=== PATIENT | female | born 1950 | race Asian ===

== ENCOUNTER 2019-11-25 10:59 | Emergency (ER) | payer OTHER ==
--- NOTE | 2019-11-25 12:02 | Emergency Department Report ---
Blank Doc - Documentation Documentation: 68-year-old female that presents with syncopal episode.. This initial assessment/diagnostic orders/clinical plan/treatment(s) is/are subject to change based on patient's health status, clinical progression and re- assessment by fellow clinical providers in the ED. Further treatment and workup at subsequent clinical providers discretion. Patient/guardians urged not to elope from the ED as their condition may be serious if not clinically assessed and managed. Initial orders include: 1- Patient sent to [facility] for further evaluation and treatment 2- cardiac workup
--- NOTE | 2019-11-25 12:52 | Cat Scan Report ---
CT BRAIN: 11/25/2019 INDICATION / CLINICAL INFORMATION: MAIN: Syncope X 12 HR. COMPARISON: None available. FINDINGS: BRAIN/INTRACRANIAL STRUCTURES: Unenhanced CT images of the brain dated straight no evidence of acute intracranial abnormality. Ventricles and sulci are normal in size and shape. There is no evidence of acute ischemic injury, hemorrhage, or mass. Some patchy chronic white matter hypoattenuation is present in the cerebral hemispheric white matter. There are no abnormal extra-axial fluid collections. EXTRACRANIAL STRUCTURES: Unremarkable. IMPRESSION: No acute abnormality. All CT scans at this location are performed using dose reduction to ALARA by means of automated expos ure control. Signer Name: Zafar Frederick MD Signed: 11/25/2019 12:47 PM Workstation Name: [id number]
[2019-11-25 13:25] LABS: Bacteria,Urine 1+ /HPF (Negative); Bilirubin,Urine NEG (Negative); Blood,Urine NEG (Negative); Color,Urine Amber (Yellow); Hyaline Casts,Urine 4 /LPF; Mucus,Urine FEW /HPF; Protein,Urine <15 mg/dL mg/dL (Negative)
[2019-11-25 13:40] LABS: Basophils % (Auto) 0.4 % (0.0-1.8); Eosinophils % (Auto) 0.2 % (0.0-4.3); Hematocrit 41.1 % (30.3-42.9); Hemoglobin 13.5 gm/dl (10.1-14.3); Lymphocytes % (Auto) 18.3 % (13.4-35.0); Mean Corpuscular HGB Conc 33 % (30-34); Mean Corpuscular Volume 90 fl (79-97); Monocytes # (Auto) 0.5 K/mm3 (0.0-0.8); Monocytes % (Auto) 8.5 % (0.0-7.3); Platelet Count 292 K/mm3 (140-440); Red Blood Count 4.59 M/mm3 (3.65-5.03); Red Cell Distribution Width 13.9 % (13.2-15.2)
[2019-11-25 14:00] LABS: Alanine Aminotransferase 19 units/L (7-56); Albumin 4.1 g/dL (3.9-5); BUN/Creatinine Ratio 17; Blood Urea Nitrogen 17 mg/dL (7-17); Calcium 9.8 mg/dL (8.4-10.2); Hemolysis Index 8
[2019-11-25] MEDS ORDERED: ONDANSETRON 4 MG/2 ML INJ IV ONE (18:51)
[2019-11-25] MEDS ORDERED: SODIUM CHLORIDE 0.9% 1000 ML 1,000 ML IV ONE (18:51)
[2019-11-25] MEDS ORDERED: SODIUM CHLORIDE 0.9% 1000 ML 1,000 ML ONE (18:52)
[2019-11-25] MEDS ORDERED: ONDANSETRON 4 MG/2 ML INJ ONE (18:53)
--- NOTE | 2019-11-25 18:56 | Emergency Department Report ---
ED Syncope HPI - General Chief Complaint: Syncope Stated Complaint: PASSED OUT, DIZZY Time Seen by Provider: 11/25/19 11:59 - History of Present Illness Initial Comments: Patient is 68-year-old female with past medical history of cervical cancer 4 years ago in remission. Patient presented to the ER complaining of 1 episode of syncope happened this morning. Patient stated that she went to the bathroom and while she is standing to brush her teeth she felt lightheaded and fell and lost her consciousness for brief seconds and now she is back to normal. Patient found to be slightly hypoglycemic with a low blood pressure. Patient patient denied any headache, neck pain, chest pain, shortness of breath, abdominal pain. Patient stated that she was nauseated with decreased appetite for the last few days however she denied any fever or urinary symptoms. Timing/Prior Episodes: no prior history, single episode today Precipitating Factors: Positive: lightheadedness Context: standing Loss of Consciousness: brief (seconds) Current Symptoms: back to normal - Related Data Allergies/Adverse Reactions: Allergies No Known Allergies Allergy (Unverified 11/25/19 11:04) ED Review of Systems ROS: Stated complaint: PASSED OUT, DIZZY Other details as noted in HPI Comment: All other systems reviewed and negative Constitutional: denies: chills, fever Respiratory: denies: cough, orthopnea, shortness of breath, SOB with exertion, SOB at rest Cardiovascular: denies: chest pain, palpitations Gastrointestinal: denies: abdominal pain, nausea, vomiting, diarrhea, constipation, hematemesis, melena, hematochezia Genitourinary: denies: urgency, dysuria, frequency, hematuria, discharge, abnormal menses Musculoskeletal: denies: back pain Neurological: vertigo (Resolved.). denies: headache, weakness, numbness, paresthesias, confusion, abnormal gait ED Past Medical Hx - Past Medical History Previous Medical History?: Yes Hx Hypertension: Yes Additional medical history: Cervical CA - Surgical History Past Surgical History?: Yes Additional Surgical History: Surgery for cervical CA - Social History Smoking Status: Current Every Day Smoker Substance Use Type: None ED Physical Exam - General Limitations: No Limitations General appearance: alert, in no apparent distress - Head Head exam: Present: atraumatic, normocephalic, normal inspection - Eye Eye exam: Present: normal appearance, PERRL - ENT ENT exam: Present: mucous membranes dry - Neck Neck exam: Present: normal inspection, full ROM. Absent: tenderness, meningismus - Respiratory Respiratory exam: Present: normal lung sounds bilaterally - Cardiovascular Cardiovascular Exam: Present: normal rhythm, bradycardia, normal heart sounds - GI/Abdominal GI/Abdominal exam: Present: soft, normal bowel sounds. Absent: distended, tenderness, guarding, rebound, rigid, organomegaly, mass, bruit, pulsatile mass, hernia - Extremities Exam Extremities exam: Present: normal inspection, full ROM, normal capillary refill. Absent: tenderness, pedal edema, calf tenderness - Back Exam Back exam: Present: normal inspection, full ROM. Absent: CVA tenderness (R), CVA tenderness (L), muscle spasm, paraspinal tenderness, vertebral tenderness - Neurological Exam Neurological exam: Present: alert, oriented X3, CN II-XII intact, normal gait, reflexes normal. Absent: abnormal gait, motor sensory deficit - Psychiatric Psychiatric exam: Present: normal mood - Skin Skin exam: Present: warm, dry, intact ED Course Vital Signs 11/25/19 11/25/19 11/25/19 11:38 16:16 18:15 Temperature 98.2 F 97.9 F Pulse Rate 56 L 89 58 L Respiratory 18 20 18 Rate Blood Pressure 108/65 114/61 131/61 Blood Pressure 137/91 [Left] O2 Sat by Pulse 98 97 97 Oximetry 11/25/19 11/25/19 11/25/19 18:30 18:46 19:00 Temperature Pulse Rate 54 L 55 L 53 L Respiratory 17 15 13 Rate Blood Pressure 133/51 139/60 137/59 Blood Pressure [Left] O2 Sat by Pulse 96 97 99 Oximetry 11/25/19 11/25/19 11/25/19 19:16 19:30 19:46 Temperature Pulse Rate 59 L 59 L 60 Respiratory 14 14 16 Rate Blood Pressure 130/56 122/60 120/50 Blood Pressure [Left] O2 Sat by Pulse 100 100 98 Oximetry 11/25/19 11/25/19 11/25/19 20:00 20:15 20:30 Temperature Pulse Rate 59 L 61 63 Respiratory 14 14 18 Rate Blood Pressure 120/66 130/58 131/57 Blood Pressure [Left] O2 Sat by Pulse 98 98 100 Oximetry 11/25/19 11/25/19 11/25/19 20:46 21:00 21:15 Temperature Pulse Rate 60 50 L 56 L Respiratory 14 14 14 Rate Blood Pressure 151/55 164/114 164/71 Blood Pressure [Left] O2 Sat by Pulse 98 100 99 Oximetry 11/25/19 21:30 Temperature Pulse Rate Respiratory Rate Blood Pressure 144/65 Blood Pressure [Left] O2 Sat by Pulse 98 Oximetry ED Medical Decision Making - Lab Data Result diagrams: 11/25/19 13:05 11/25/19 13:05 - EKG Data -: EKG Interpreted by Me EKG shows normal: sinus rhythm Rate: bradycardia - EKG Data Interpretation: no acute changes - Radiology Data Radiology results: report reviewed - Medical Decision Making Patient is 68-year-old female with past medical history of cervical cancer 4 years ago in remission. Patient presented to the ER complaining of 1 episode of syncope happened this morning. Patient stated that she went to the bathroom and while she is standing to brush her teeth she felt lightheaded and fell and lost her consciousness for brief seconds and now she is back to normal. Patient found to be slightly hypoglycemic with a low blood pressure. Patient patient denied any headache, neck pain, chest pain, shortness of breath, abdominal pain. Patient stated that she was nauseated with decreased appetite for the last few days however she denied any fever or urinary symptoms. Patient received normal saline and Zofran. Patient stated that she is feeling much better. Patient also served a meal tray. EKG shows sinus bradycardia with no ST elevation or depression. CT brain is negative for acute finding. Labs reviewed and is unremarkable except for trace ketones in the urine which indicate dehydration consistent with her decreased p.o. intake in the last few days. No clinical or imaging studies to indicate a stroke at this moment however patient advised to follow-up with her primary care physician in the next 2 to 3 days and to return to the ER if she develop any new symptoms. Critical care attestation.: If time is entered above; I have spent that time in minutes in the direct care of this critically ill patient, excluding procedure time. ED Disposition Clinical Impression: Syncope Disposition: DC-01 TO HOME OR SELFCARE Is pt being admited?: No Condition: Stable Instructions: Syncope (ED) Referrals: PIPER CARRASCO MD [Primary Care Provider] - 3-5 Days
[2019-11-25 22:13] VITALS: BP 139/68
== END 2019-11-25 22:13 | disposition home or self-care (01) ==
LOC: ED 10:59
DX: R55 Syncope and collapse (principal); R42 Dizziness and giddiness; I10 Essential (primary) hypertension; F17.200 Nicotine dependence, unspecified, uncomplicated; Z98.890 Other specified postprocedural states
CPT/HCPCS: 36415; 70450; 80053; 81001; 82962; 84484; 85025; 85730; 87086; 93005; 93010; 96361; 96374; 99285; J2405; J7030